=== PATIENT | male | born 1950 | race African-American/Black ===

== ENCOUNTER 2017-12-06 13:50 | Emergency (ER) | payer BC ==
[2017-12-06] MEDS: predniSONE 10 MG TABLET PO ×2 (15:45)
[2017-12-06] MEDS: HYDROcodone/APAP 7.5/325MG 1 TAB TABLET PO ×2 (15:45)
[2017-12-06 16:12] LABS: BILIRUBIN,URINE NEGATIVE (NEG); CLARITY,URINE CLEAR; COLOR,URINE YELLOW; GLUCOSE,URINE NEGATIVE (NEG); NITRITE,URINE NEGATIVE (NEG); PH,URINE 6.5; PROTEIN,URINE NEGATIVE (NEG-TRACE); UROBILINOGEN,URINE 0.2 mg/dL (0.2 mg/dL)
[2017-12-06 16:28] LABS: BACTERIA,URINE 0 /HPF (0-FEW); HYALINE CASTS, URINE FEW /HPF; SQUAMOUS EPITHELIAL CELL,UR OCC /LPF
== END 2017-12-06 16:58 | disposition home or self-care (01) ==
LOC: ER 13:50
DX: M54.5 Low back pain (principal); E11.9 Type 2 diabetes mellitus without complications; E78.00 Pure hypercholesterolemia, unspecified; I10 Essential (primary) hypertension; F17.210 Nicotine dependence, cigarettes, uncomplicated; F12.10 Cannabis abuse, uncomplicated; Z86.73 Personal history of transient ischemic attack (TIA), and cerebral infarction without residual deficits
CPT/HCPCS: 81001; 99284; J7512